=== PATIENT | male | born 1960 | race Caucasian/White ===

== ENCOUNTER 2017-11-19 15:57 | Emergency (ER) | payer OTHER ==
[2017-11-19] MEDS ORDERED: KETOROLAC TROMETHAMINE 60 MG/2 ML VIAL IM ONE (16:44)
--- NOTE | 2017-11-19 16:50 | PDOC ---
History of Present Illness - General Chief Complaint: Back Pain Stated Complaint: BACK PAIN Time Seen by Provider: 11/19/17 16:21 History Source: Patient Exam Limitations: No Limitations - History of Present Illness Initial Comments: 11/19/17 16:45 57y M hx of sciatica presents with back pain. Pt notse his pain has been worsening over the past few weeks, states he was given an rx for flexeril/ skelaxin and hasnt been taking it as he doesnt like how it makes him feel. pt is also occasionally taking motrin (last use >24 hrs ago). he notes the pain is worse in the L lower back and radiates down to the L leg and sometimes to the L flank. pt ntose the pain feels simialr to previous episodes of his back pain. no fever/chills, numbness/weakness/tingling, urinary or bowel incontinence, hematuria, diarrhea/melena. no recent trauma/falls. no cp, sob, palpitations. pt notes pain is wosre when he is seated for long periods of time, improves when he is standing. Past History - Past Medical History Allergies/Adverse Reactions: Allergies Allergy/AdvReac Type Severity Reaction Status Date / Time No Known Allergies Allergy Verified 11/19/17 15:59 Home Medications: Ambulatory Orders Cyclobenzaprine HCl [Flexeril 10 mg] 10 mg PO TID PRN 11/19/17 Meloxicam [Mobic (Nf) -] 18 mg PO DAILY 11/19/17 Zolpidem Tartrate [Ambien] 10 mg PO HS 11/19/17 COPD: No GI Disorders: Yes (PEPTIC ULCER) Other medical history: DENIES - Immunization History Td Vaccination: Yes Immunization Up to Date: No - Suicide/Smoking/Psychosocial Hx Smoking Status: Yes Smoking History: Current every day smoker Have you smoked in the past 12 months: Yes Number of Cigarettes Smoked Daily: 20 Information on smoking cessation initiated: Yes 'Breaking Loose' booklet given: 11/19/17 Hx Alcohol Use: (occasional) Drug/Substance Use Hx: No Substance Use Type: None Hx Substance Use Treatment: No Review of Systems - Review of Systems Able to Perform ROS?: Yes Comments:: 11/19/17 16:49 Constitutional - no reported Fever, Chills, HEENT: no reported vision changes, sore throat Respiratory: no reported cough, sob, hemoptysis Cardiac: no reported chest pain, palpitations, light headedness, leg swelling Abd/GI: no reported abd pain, nausea, vomiting, blood per rectum, melena, diarrhea : no reported dysuria, frequency, discharge Musculskelatal - + back pain, no reportedjoint swelling skin - no reported bruising, erythema, rash neurological: no reported headache, numbness, focal weakness, tingling, ataxia, hematologic: no reported easy bruising, easy bleeding *Physical Exam - Vital Signs Last Vital Signs Temp Pulse Resp BP Pulse Ox 97.5 F L 65 18 117/64 100 11/19/17 15:57 11/19/17 15:57 11/19/17 15:57 11/19/17 15:57 11/19/17 15:57 - Physical Exam Comments: 11/19/17 16:49 GENERAL: The patient is awake, alert, and fully oriented, Nontoxic - in no acute distress. HEAD: Normocephalic, atraumatic. EYES: extraocular movements intact, sclera anicteric, conjunctiva clear. ENT: Normal voice, Moist mucous membranes. NECK: Normal range of motion, supple LUNGS: Breath sounds equal, clear to auscultation bilaterally. No wheezes, no rhonchi, no rales. HEART: Regular rate and rhythm, normal S1 and S2 without murmur, rub or gallop. ABDOMEN: Soft, nontender, normoactive bowel sounds. No guarding, no rebound. . No CVA tenderness BACK: No focal midline tenderness mild L paraspinal lumbar tenderness EXTREMITIES: Normal range of motion, no edema. No clubbing or cyanosis. No cords, erythema, or tenderness. NEUROLOGICAL: No facial assymetry, Normal speech, normal gait, streigth symmetric b/l in upper/lower extrmities,s sensation symmetric b/l PSYCH: Normal mood, normal affect. SKIN: Warm, Dry, normal turgor, Medical Decision Making - Medical Decision Making 11/19/17 16:49 57y M here with back pain, pain c/w sciatica but pt notse it radiates to the front ddx - sciatcia w/ msucle spasm vs kidney stones will obtain UA will treat with toradol IM 11/19/17 17:39 pts UA negative for blood or infection will dc the pt with pmd fu supportive care return precautions were discussed I discussed the physical exam findings, ancillary test results and final diagnoses with the patient. I answered all of the patient's questions. The patient was satisfied with the care received and felt comfortable with the discharge plan and treatment plan. The patient will call their primary care physician within 24 hours to arrange follow-up and will return to the Emergency Department with any new, persistent or worsening symptoms. *DC/Admit/Observation/Transfer Diagnosis at time of Disposition: Back pain with sciatica - Discharge Dispostion Disposition: HOME Condition at time of disposition: Improved Decision to Admit order: No - Referrals Referrals: Jordan Moreno MD [Non Staff, Medical] - - Patient Instructions Printed Discharge Instructions: DI for Back Pain With Sciatica Additional Instructions: Return to the emergency department immediately with ANY new, persistent or worsening symptoms including numbness, tingling, weakness, fevers or any other concerns. Take ibuprofen (400mg)/tylenol(650mg) every 6 hours for 2 days. Take the Flexeril as prescribed if you still have pain/discomfort. Caution in using flexeril as it may make you sleepy. Do not drive or put yourself in any position where you would be in danger. Apply heat to your sore muscles. You MUST call and follow up with your doctor in 4-5 days for further evaluation of your symptoms. Your emergency department visit is not complete without a followup with your doctor for reevaluation.. Results were discussed with you. Please make sure your doctor reviews the results of your emergency evaluation. Print Language: KAZAKH - Post Discharge Activity
[2017-11-19] MEDS ORDERED: KETOROLAC TROMETHAMINE 60 MG/2 ML VIAL ONE (16:51)
[2017-11-19 17:12] LABS: URINE APPEARANCE Clear; URINE BILIRUBIN Negative (NEGATIVE); URINE COLOR Yellow; URINE GLUCOSE (UA) Negative (NEGATIVE); URINE KETONE Negative (NEGATIVE); URINE LEUK ESTERASE Negative (NEGATIVE); URINE NITRITE Negative (NEGATIVE); URINE PROTEIN Negative (NEGATIVE); URINE UROBILINOGEN 0.2 (0.2-1.0)
[2017-11-19 19:03] VITALS: BP 117/64; PULSE 65; TEMP 97.5; BMI 26.6
== END 2017-11-19 18:00 | disposition home or self-care (01) ==
LOC: FER 15:57
PROC: 3E0233Z Introduction of Anti-inflammatory into Muscle, Percutaneous Approach (ICD-10-PCS; principal; 2017-11-19)
DX: M54.30 Sciatica, unspecified side (principal); M54.9 Dorsalgia, unspecified
CPT/HCPCS: 81003; 99284-25

== ENCOUNTER 2017-12-08 18:45 | Emergency (ER) | payer OTHER ==
[2017-12-08 18:57] VITALS: BP 137/94; PULSE 75; TEMP 97.9; BMI 26.7
--- NOTE | 2017-12-08 20:02 | PDOC ---
History of Present Illness - General History Source: Patient Exam Limitations: No Limitations - History of Present Illness Initial Comments: 12/08/17 20:27 The patient is a 57 year old male, with a significant past medical history of sciatica and peptic ulcers, who presents to the emergency department with, lower back pain. The patient describes his pain as radiating from his lower back down his left leg. The patient has been in physical therapy for his symptoms but notes, that he believes his back pain worsens after sessions. He notes similar episodes in the past and was seen in the ED most recently 2017 for similar symptoms. He notes taking a muscle relaxer without relief. He has not been compliant with his Meloxicam because he was unaware he could take them together, prompting his visit to the ER today. He denies any testicular pain or urinary/bowel incontinence. He denies any recent fevers, chills, headache or dizziness. He denies any recent nausea, vomit , diarrhea or constipation. He denies any recent chest pain or shortness of breath. He denies any recent dysuria, frequency, urgency or hematuria. Allergies: NKDA Past surgical history: None reported. Social History: Smoker. Social alcohol usage. <Bernard Song - Last Filed: 12/08/17 21:43> <Jacqui Hernandez - Last Filed: 12/10/17 00:04> - General Chief Complaint: Back Pain Stated Complaint: BACK PAIN Time Seen by Provider: 12/08/17 19:10 Past History <Bernard Song - Last Filed: 12/08/17 21:43> - Past Medical History COPD: No GI Disorders: Yes (PEPTIC ULCER) Other medical history: SCIATIC PAIN - Immunization History Td Vaccination: Yes Immunization Up to Date: No - Suicide/Smoking/Psychosocial Hx Smoking Status: Yes Smoking History: Current every day smoker Have you smoked in the past 12 months: Yes Number of Cigarettes Smoked Daily: 20 Information on smoking cessation initiated: Yes 'Breaking Loose' booklet given: 11/19/17 Hx Alcohol Use: Yes (OCCASIONAL) Drug/Substance Use Hx: No Substance Use Type: None Hx Substance Use Treatment: No <Jacqui Hernandez - Last Filed: 12/10/17 00:04> - Past Medical History Allergies/Adverse Reactions: Allergies Allergy/AdvReac Type Severity Reaction Status Date / Time No Known Allergies Allergy Verified 12/08/17 18:48 Home Medications: Ambulatory Orders Cyclobenzaprine HCl [Flexeril 10 mg] 10 mg PO TID PRN 11/19/17 Meloxicam [Mobic (Nf) -] 18 mg PO DAILY 11/19/17 Zolpidem Tartrate [Ambien] 10 mg PO HS 11/19/17 Oxycodone HCl/Acetaminophen [Percocet 5-325 mg Tablet] 1 tab PO Q6H PRN #8 tablet MDD 2 tabs 12/08/17 Review of Systems - Review of Systems Able to Perform ROS?: Yes Comments:: 12/08/17 20:27 CONSTITUTIONAL: Absent: fever, no chills, no fatigue EYES: Absent: visual changes ENT: Absent: ear pain, no sore throat CARDIOVASCULAR: Absent: chest pain, no palpitations RESPIRATORY: Absent: cough, no SOB GI: Absent: abdominal pain, no nausea, no vomiting, no constipation, no diarrhea GENITOURINARY: Absent: dysuria, no frequency, no hematuria MUSKULOSKELETAL: Present: Back pain. Absent: no arthralgia, no myalgia SKIN: Absent: rash NEURO: Absent: headache All Other Systems: Reviewed and Negative <Bernard Song - Last Filed: 12/08/17 21:43> *Physical Exam - Vital Signs Last Vital Signs Temp Pulse Resp BP Pulse Ox 97.9 F 75 16 137/94 100 12/08/17 18:46 12/08/17 18:46 12/08/17 18:46 12/08/17 18:46 12/08/17 18:46 - Physical Exam Comments: 12/08/17 20:28 GENERAL: The patient is awake, alert, and fully oriented, in no acute distress. HEAD:Normal with no signs of trauma. EYES: Pupils equal, round and reactive to light, extraocular movements intact, sclera anicteric, conjunctiva clear. EXTREMITIES: Normal range of motion, no edema. +BACK: Mild tenderness to central vertebral column L4-L5 and left sacral iliac region. Mild tenderness of the paraspinal lumbar muscles of left side. NEUROLOGICAL: Normal speech, normal gait. PSYCH: Normal mood, normal affect. SKIN: Warm, Dry, normal turgor, no rashes or lesions noted. <Bernard Song - Last Filed: 12/08/17 21:43> - Vital Signs Last Vital Signs Temp Pulse Resp BP Pulse Ox 97.9 F 75 16 137/94 100 12/08/17 18:46 12/08/17 18:46 12/08/17 18:46 12/08/17 18:46 12/08/17 18:46 <Jacqui Hernandez - Last Filed: 12/10/17 00:04> ED Treatment Course - Medications Given in the ED: ED Medications Discontinued Medications Generic Name Dose Route Start Last Admin Trade Name Jessenia PRN Reason Stop Dose Admin Ketorolac Tromethamine 60 mg 12/08/17 20:19 12/08/17 20:20 Toradol Injection - IM 12/08/17 20:20 60 mg ONCE ONE Administration <Bernard Song - Last Filed: 12/08/17 21:43> Progress Note - Progress Note Progress Note: Documentation has been prepared under my direction and personally reviewed by me in its entirety. I attest that this documented accurately reflects all work, treatment, procedures and medical decision making performed by me. <Jacqui Hernandez - Last Filed: 12/10/17 00:04> Medical Decision Making - Medical Decision Making As noted above, this 57-year-old man presents with recurrent left sided lower back pain with some radiation of pain to the anterior proximal thigh. No history of numbness/weakness of the lower extremity or signs of cauda equina syndrome. Exam as noted. Patient has no significant evidence of disc disease but has not had any imaging of his back to rule this out. Patient was asked if he had ever seen an orthopedist. He states he had many years ago but had no interest in following up with orthopedist now. Meloxicam and Skelaxin had been prescribed previously. Patient states these medications are only partially effective and he frequently needs stronger medication at night. He asked about receiving "strong" medication now so that he would have a comfortable night. Since patient had driven himself to the ER and was unwilling to take a cab home , he would receive Toradol 60 mg IM instead of parenteral narcotic. Small prescription for Percocet 5/325 (#8) will be transmitted to patient's pharmacy for supplemental night use. Tomorrow, patient should resume meloxicam and Skelaxin as needed. <Jacqui Hernandez - Last Filed: 12/10/17 00:04> *DC/Admit/Observation/Transfer - Attestations Scribe Attestion: 12/08/17 20:27 Documentation prepared by Bernard Song, acting as biomedical photographer for Jacqui Hernandez MD. <Bernard Song - Last Filed: 12/08/17 21:43> <Jacqui Hernandez - Last Filed: 12/10/17 00:04> Diagnosis at time of Disposition: Lumbosacral ligament sprain Qualifiers: Encounter type: initial encounter Qualified Code(s): S33.5XXA - Sprain of ligaments of lumbar spine, initial encounter - Discharge Dispostion Disposition: HOME Condition at time of disposition: Stable - Prescriptions Prescriptions: Oxycodone HCl/Acetaminophen [Percocet 5-325 mg Tablet] 1 tab PO Q6H PRN #8 tablet MDD 2 tabs PRN Reason: Severe Pain - Patient Instructions Printed Discharge Instructions: Low Back Pain Additional Instructions: Percocet 5/325 one tablet every 6 hours as needed for severe pain (up to 2 tabs per day) Tomorrow, continue meloxicam/muscle relaxant for back pain as needed local warmth to area of pain as needed Follow-up with your general medical doctor within the next 5 days regarding further care of back pain Return to ER if you have severe pain/weakness/numbness of leg
[2017-12-08] MEDS ORDERED: KETOROLAC TROMETHAMINE 60 MG/2 ML VIAL IM ONE (20:19)
[2017-12-08] MEDS ORDERED: KETOROLAC TROMETHAMINE 60 MG/2 ML VIAL ONE (20:20)
== END 2017-12-08 20:34 | disposition home or self-care (01) ==
LOC: FER 18:45
PROC: 3E0233Z Introduction of Anti-inflammatory into Muscle, Percutaneous Approach (ICD-10-PCS; principal; 2017-12-08)
DX: M54.5 Low back pain (principal); S33.5XXA Sprain of ligaments of lumbar spine, initial encounter; K27.9 Peptic ulcer, site unspecified, unspecified as acute or chronic, without hemorrhage or perforation; F17.210 Nicotine dependence, cigarettes, uncomplicated; X58.XXXA Exposure to other specified factors, initial encounter; Y93.89 Activity, other specified; Y92.9 Unspecified place or not applicable
CPT/HCPCS: 99282-25

== ENCOUNTER 2018-05-27 16:40 | Emergency (ER) | payer OTHER ==
[2018-05-27 17:33] VITALS: BP 118/76; PULSE 57; TEMP 97.6; BMI 27.3
--- NOTE | 2018-05-27 18:54 | PDOC ---
Documentation entered by Jocelynn Mejia SCRIBE, acting as scribe for Shubham Strickland MD. Shubham Strickland MD: This documentation has been prepared by the Roberto albert Xhesika, SCRIBE, under my direction and personally reviewed by me in its entirety. I confirm that the documentation accurately reflects all work, treatment, procedures, and medical decision making performed by me. History of Present Illness - General Chief Complaint: Pain Stated Complaint: COUGH, LEFT ARM CHEST AND BACK PAIN Time Seen by Provider: 05/27/18 17:33 History Source: Patient Exam Limitations: No Limitations - History of Present Illness Initial Comments: 05/27/18 18:36 The patient is a 57 year old male, with a significant past medical history of sciatica/ peptic ulcers, and HLD who presents to the emergency department with 3 days of cough and chest pain. The patient describes his chest pain as a dull pressure, radiating down his left arm. Pt also endorses cough x 1 month with white sputum. The patient states he woke up today and felt a burning in his chest that felt like acid reflux. The patient states his chest pain is worsened with exertion. The patient notes he has a family history of heart attack at his age. He is also a current smoker. He denies any recent fevers, chills, headache or dizziness. He denies any recent nausea, vomit, diarrhea or constipation. He denies any recent dysuria, frequency, urgency or hematuria. He denies any recent travels. Allergies: NKDA Past surgical history: None reported. Social History: Smoker (1 pack a day). Social alcohol usage. Past History - Past Medical History Allergies/Adverse Reactions: Allergies Allergy/AdvReac Type Severity Reaction Status Date / Time No Known Allergies Allergy Verified 05/27/18 16:41 Home Medications: Ambulatory Orders Zolpidem Tartrate [Ambien] 10 mg PO HS 11/19/17 Aspirin/Acetaminophen/Caffeine [Excedrin Extra Strength Caplet] 1 each PO PRN PRN 05/27/18 Gabapentin 100 mg PO PRN PRN 05/27/18 COPD: No GI Disorders: Yes (PEPTIC ULCER) Other medical history: BACK PAIN - Immunization History Td Vaccination: Yes Immunization Up to Date: No - Suicide/Smoking/Psychosocial Hx Smoking Status: Yes Smoking History: Current every day smoker Have you smoked in the past 12 months: Yes Number of Cigarettes Smoked Daily: 20 Information on smoking cessation initiated: Yes 'Breaking Loose' booklet given: 11/19/17 Hx Alcohol Use: Yes (OCCASIONAL) Drug/Substance Use Hx: No Substance Use Type: None Hx Substance Use Treatment: No Review of Systems - Review of Systems Comments:: 05/27/18 18:37 GENERAL/CONSTITUTIONAL: No fever or chills. No weakness. HEAD, EYES, EARS, NOSE AND THROAT: No change in vision. No ear pain or discharge. No sore throat. CARDIOVASCULAR: (+) chest pain. No shortness of breath, no loss of consciousness RESPIRATORY:(+) cough. No wheezing, or hemoptysis. GASTROINTESTINAL: No nausea, vomiting, diarrhea or constipation. GENITOURINARY: No dysuria, frequency, or change in urination. MUSCULOSKELETAL: No neck or back pain. SKIN: No rash NEUROLOGIC: No vertigo, no change in strength/sensation. ENDOCRINE: No increased thirst. No abnormal weight change. HEMATOLOGIC/LYMPHATIC: No anemia, easy bleeding, or history of blood clots. ALLERGIC/IMMUNOLOGIC: No hives or skin allergy. *Physical Exam - Vital Signs Last Vital Signs Temp Pulse Resp BP Pulse Ox 97.6 F 57 L 20 118/76 99 05/27/18 16:41 05/27/18 16:41 05/27/18 16:41 05/27/18 16:41 05/27/18 16:41 - Physical Exam Comments: 05/27/18 18:37 "GENERAL: Awake, alert, and fully oriented, in no acute distress. HEAD: No signs of trauma EYES: PERRLA, EOMI, sclera anicteric, conjunctiva clear ENT: Auricles normal inspection, hearing grossly normal, nares patent, oropharynx clear without exudates. Moist mucosa NECK: Nontender, no stepoffs, Normal ROM, supple, no lymphadenopathy, JVD, or masses LUNGS: Breath sounds equal, clear to auscultation bilaterally. No wheezes, and no crackles HEART: Regular rate and rhythm, normal S1 and S2, no murmurs, rubs or gallops ABDOMEN: Soft, nontender, normoactive bowel sounds. No guarding, no rebound. No masses EXTREMITIES: Normal range of motion, no edema. No clubbing or cyanosis. No cords, erythema, or tenderness NEUROLOGICAL: Cranial nerves II through XII intact. 5/5 strength and sensation in all extremities, Normal speech, normal gait, normal cerebellar function SKIN: Warm, Dry, normal turgor, no rashes or lesions noted. Heart Score/ECG Review - History History: Slightly suspicious - Electrocardiogram EKG: Normal - Age Age: 45-65 - Risk Factors Risk Factors Heart Score: Yes Hx Hypercholesterolemia, Yes Smoking History, Yes Positive family hx of cardiac disease Based on the list above the patient has:: >/=3 risk factors or Hx atherosclerotic disease - Troponin Troponin: </= normal limit - Score Heart Score - Total: 3 - ECG Impressions Comment:: 05/27/18 18:40 NSR, no AUBRIE/STDs, no TWIs, axis wnl, intervals wnl, rate 50 ED Treatment Course - LABORATORY CBC & Chemistry Diagram: 05/27/18 19:05 05/27/18 19:05 - ADDITIONAL ORDERS Additional order review: Laboratory Results 05/27/18 05/27/18 05/27/18 20:24 19:05 19:05 PT with INR 12.6 INR 1.13 PTT (Actin FS) 27.8 Sodium 143 Potassium 5.1 Chloride 106 Carbon Dioxide 26 Anion Gap 11 BUN 11 Creatinine 0.7 Creat Clearance w eGFR 117.08 Random Glucose 87 Calcium 9.2 Total Bilirubin 0.8 AST 24 ALT 18 Alkaline Phosphatase 58 Creatine Kinase 137 Troponin I < 0.03 B-Natriuretic Peptide Total Protein 7.2 Albumin 4.4 05/27/18 05/27/18 19:05 18:55 PT with INR INR PTT (Actin FS) Sodium Potassium Chloride Carbon Dioxide Anion Gap BUN Creatinine Creat Clearance w eGFR Random Glucose Calcium Total Bilirubin AST ALT Alkaline Phosphatase Creatine Kinase Troponin I < 0.03 B-Natriuretic Peptide 77.6 Total Protein Albumin 05/27/18 19:05 RBC 4.77 MCV 95.6 MCHC 34.0 RDW 12.6 MPV 12.4 H Neutrophils % No Result Required. Lymphocytes % No Result Required. - RADIOLOGY Radiology Studies Ordered: Category Date Time Status CHEST PA & LAT [RAD] Stat Radiology 05/27/18 17:59 Completed Medical Decision Making - Medical Decision Making 05/27/18 18:38 57 M presenting to ED with chest pressure x 3 days. Will need to r/o ACS given comorbidities and family history of WI. PE unlikely as pt with no DVT risk factors. Equal pulses bilaterally, making dissection unlikely. - Labs, trop x2 - CXR Pt signed out to oncoming attending at 7pm, pending labs, XR, and re-evaluation *DC/Admit/Observation/Transfer Diagnosis at time of Disposition: Atypical chest pain - Discharge Dispostion Disposition: HOME Condition at time of disposition: Stable - Referrals - Patient Instructions Printed Discharge Instructions: DI for Atypical Chest Pain Additional Instructions: return to ER if you have persistent pain or have shortness of breath/vomiting avoid smoking as much as possible followup with your doctor within 3-4 days - Post Discharge Activity - Attestations Physician Attestion: 05/27/18 22:02 I, Dr. Shubham Strickland MD, attest that this document has been prepared under my direction and personally reviewed by me in its entirety. I further attest, that it accurately reflects all work, treatment, procedures and medical decision -making performed by me.
[2018-05-27 19:25] LABS: HEMATOCRIT 45.6 % (35.4-49); HEMOGLOBIN 15.5 GM/dl (11.7-16.9); MCH 32.5 pg (25.7-33.7); MEAN CELL VOLUME 95.6 fl (80-96); MEAN PLT VOLUME 12.4 fl (7.5-11.1); PLATELET COUNT 97 K/MM3 (134-434); RBC 4.77 M/mm3 (4.00-5.60); RDW 12.6 % (11.9-15.9); WHITE BLOOD COUNT 6.5 K/mm3 (4.0-10.8)
[2018-05-27 19:36] LABS: ALBUMIN 4.4 g/dl (3.4-5.0); ALK PHOS 58 U/L (45-117); ANION GAP 11 MMOL/L (8-16); BILIRUBIN,TOTAL 0.8 mg/dl (0.2-1); BLOOD UREA NITROGEN 11 mg/dl (7-18); CALCIUM 9.2 mg/dl (8.5-10); CHLORIDE 106 mmol/L (98-107); CO2 26 mmol/L (21-32); CREATININE 0.7 mg/dl (0.55-1.3); GLUCOSE,RANDOM 87 mg/dl (74-106); POTASSIUM 5.1 mmol/L (3.5-5.1); SGOT/AST 24 U/L (15-37); SGPT/ALT 18 U/L (13-61); SODIUM 143 mmol/L (136-145); TOT PROT 7.2 g/dl (6.4-8.2)
[2018-05-27 19:41] LABS: ACTIVATED PTT 27.8 SECONDS (25.2-36.5)
[2018-05-27 19:51] LABS: INR 1.13 (0.82-1.09); PROTHROMBIN TIME (PATIENT) 12.6 SEC (10.2-13.0)
--- NOTE | 2018-05-27 20:24 | PDOC ---
*Physical Exam - Vital Signs Last Vital Signs Temp Pulse Resp BP Pulse Ox 97.6 F 57 L 20 118/76 99 05/27/18 16:41 05/27/18 16:41 05/27/18 16:41 05/27/18 16:41 05/27/18 16:41 ED Treatment Course - LABORATORY CBC & Chemistry Diagram: 05/27/18 19:05 05/27/18 19:05 - ADDITIONAL ORDERS Additional order review: Laboratory Results 05/27/18 05/27/18 05/27/18 19:05 19:05 18:55 PT with INR 12.6 INR 1.13 PTT (Actin FS) 27.8 Sodium 143 Potassium 5.1 Chloride 106 Carbon Dioxide 26 Anion Gap 11 BUN 11 Creatinine 0.7 Creat Clearance w eGFR 117.08 Random Glucose 87 Calcium 9.2 Total Bilirubin 0.8 AST 24 ALT 18 Alkaline Phosphatase 58 Creatine Kinase 137 Troponin I < 0.03 Total Protein 7.2 Albumin 4.4 05/27/18 19:05 RBC 4.77 MCV 95.6 MCHC 34.0 RDW 12.6 MPV 12.4 H Neutrophils % No Result Required. Lymphocytes % No Result Required. Progress Note - Progress Note Progress Note: Care of this patient received from Patient presented with several day history of chest pain. EKG as noted is normal. Patient has risk factors for coronary artery disease (hyperlipidemia/family history). Laboratory evaluation, including troponin is normal. Because of the risk factors for coronary artery disease, second troponin was drawn. This also was normal. BNP had been evaluated and this was not found to be elevated. Patient will be discharged with instructions to avoid smoking, to return to the emergency room if he has severe, persistent pain, shortness of breath, palpitations or lightheadedness. Otherwise, he should follow-up with his doctor within the next 3-4 days *DC/Admit/Observation/Transfer Diagnosis at time of Disposition: Atypical chest pain - Discharge Dispostion Disposition: HOME Condition at time of disposition: Stable - Referrals - Patient Instructions Printed Discharge Instructions: DI for Atypical Chest Pain Additional Instructions: return to ER if you have persistent pain or have shortness of breath/vomiting avoid smoking as much as possible followup with your doctor within 3-4 days - Post Discharge Activity
[2018-05-27 21:46] LABS: PLATELET ESTIMATE ADEQUATE
--- NOTE | 2018-05-28 12:38 | EKG ---
Test Reason : Blood Pressure : / mmHG Vent. Rate : 050 BPM Atrial Rate : 050 BPM P-R Int : 172 ms QRS Dur : 102 ms QT Int : 466 ms P-R-T Axes : 061 036 040 degrees QTc Int : 424 ms SINUS BRADYCARDIA OTHERWISE NORMAL ECG Confirmed by MD MELONIE, HARI ([id number]) on 05/28/2018 12:38:27 PM Referred By: Confirmed By:HARI WILHELM MD
== END 2018-05-27 21:59 | disposition home or self-care (01) ==
LOC: FER 16:40
DX: R07.89 Other chest pain (principal); E78.00 Pure hypercholesterolemia, unspecified; F17.210 Nicotine dependence, cigarettes, uncomplicated; K27.9 Peptic ulcer, site unspecified, unspecified as acute or chronic, without hemorrhage or perforation
CPT/HCPCS: 36415; 71046-TC-FY; 80053; 82550; 83880; 84484; 85025; 85610; 85730; 87804; 93005; 99283-25

== ENCOUNTER 2021-04-21 17:50 | Emergency (ER) | payer OTHER ==
[2021-04-21 18:07] VITALS: BP 102/72; PULSE 56; TEMP 98.6; BMI 28.4
[2021-04-21 19:31] LABS: ALBUMIN 4.2 g/dl (3.4-5.0); BILIRUBIN,TOTAL 0.9 mg/dl (0.2-1); CALCIUM 9.2 mg/dl (8.5-10); CREATININE 0.8 mg/dl (0.55-1.3); TOT PROT 6.9 g/dl (6.4-8.2)
[2021-04-21] MEDS ORDERED: FAMOTIDINE 20 MG/50 ML IVPB 20 MG in PREMIX 50 IVPB ONE (19:48)
[2021-04-21] MEDS ORDERED: MAG HYDROX/AL HYDROX/SIMETH -MYLANTA- ORAL SUSPENSION PO ONE (19:48)
[2021-04-21] MEDS ORDERED: FAMOTIDINE 20 MG/50 ML IVPB 20 MG/50 ML MG IVPB ONE (19:59)
[2021-04-21] MEDS ORDERED: MAG HYDROX/AL HYDROX/SIMETH 30 ML UNIT-DOSE CUP ONE (19:59)
[2021-04-21] MEDS ORDERED: FAMOTIDINE 20 MG TABLET PO ONE (20:06)
[2021-04-21] MEDS ORDERED: FAMOTIDINE 20 MG TABLET ONE (20:07)
[2021-04-21 21:16] LABS: BASO % 0.4 % (0-2.0); EOS % 2.1 % (0-4.5); HEMATOCRIT 44.7 % (35.4-49); HEMOGLOBIN 15.4 GM/dL (11.7-16.9); LYMPH % 23.6 % (8-40); MCH 32.1 pg (25.7-33.7); MCHC 34.4 g/dl (32.0-35.9); MEAN CELL VOLUME 93.3 fl (80-96); MEAN PLT VOLUME 10.8 fl (7.5-11.1); MONO % 5.6 % (3.8-10.2); NEUT % 68.3 % (42.8-82.8); PLATELET COUNT 94 10^3/uL (134-434); RBC 4.79 M/mm3 (4.00-5.60); RDW 12.7 % (11.9-15.9); WHITE BLOOD COUNT 7.7 K/mm3 (4.0-10.0)
[2021-04-23 12:07] LABS: SARS-CoV-2 NAA Not Detected (Not Detected)
== END 2021-04-21 21:53 | disposition home or self-care (01) ==
LOC: FER 17:50
DX: J40 Bronchitis, not specified as acute or chronic (principal); K21.9 Gastro-esophageal reflux disease without esophagitis
CPT/HCPCS: 36415; 71046-TC-FY; 76705-TC; 80053; 83690; 84484; 85025; 93005; 99285-25; C9803; U0003; U0005

== ENCOUNTER 2022-06-05 13:45 | Emergency (ER) | payer OTHER ==
[2022-06-05 13:58] VITALS: BP 113/75; PULSE 82; RESP 16; TEMP 98.1; BMI 27.6
== END 2022-06-05 15:08 | disposition home or self-care (01) ==
LOC: FER 13:45
DX: R09.81 Nasal congestion (principal); Z20.822 Contact with and (suspected) exposure to COVID-19
CPT/HCPCS: 0241U-QW; 99283-25

== ENCOUNTER 2022-09-11 19:35 | Emergency (ER) | payer OTHER ==
[2022-09-11 20:35] VITALS: BP 106/61; PULSE 56; RESP 16; TEMP 98.4; BMI 27.4
== END 2022-09-11 21:44 | disposition home or self-care (01) ==
LOC: FER 19:35
DX: R07.89 Other chest pain (principal); B34.9 Viral infection, unspecified; M79.10 Myalgia, unspecified site; R19.7 Diarrhea, unspecified; Z20.822 Contact with and (suspected) exposure to COVID-19
CPT/HCPCS: 0241U-QW; 71046-TC-FY; 93005; 99285-25

== ENCOUNTER 2023-12-27 17:32 | Emergency (ER) | payer OTHER ==
[2023-12-27 17:57] VITALS: BP 114/72; PULSE 72; RESP 18; TEMP 99; BMI 27.4
[2023-12-27 18:12] LABS: HEMATOCRIT 46.6 % (35.4-49); HEMOGLOBIN 15.9 G/dL (11.7-16.9); MCH 32.6 pg (25.7-33.7); MCHC 34.2 g/dl (32.0-35.9); MEAN CELL VOLUME 95.4 fl (80-96); MEAN PLT VOLUME 11.1 fl (7.5-11.1); PLATELET COUNT 89.8 10^3/uL (134-434); RBC 4.88 10^6/uL (4.00-5.60); RDW 12.9 % (11.9-15.9); WHITE BLOOD COUNT 7.5 10^3/uL (4.0-10.8)
[2023-12-27 18:28] LABS: ALBUMIN 4.6 g/dl (3.4-5.0); BILIRUBIN,TOTAL 0.4 mg/dl (0.2-1); CALCIUM 9.3 mg/dl (8.5-10.1); CREATININE 0.8 mg/dl (0.6-1.3); TOT PROT 6.8 g/dl (6.4-8.2)
== END 2023-12-27 19:10 | disposition home or self-care (01) ==
LOC: FER 17:32
DX: R09.89 Other specified symptoms and signs involving the circulatory and respiratory systems (principal); R06.02 Shortness of breath; R53.83 Other fatigue; R05.9 Cough, unspecified; R50.9 Fever, unspecified; R09.81 Nasal congestion; R53.1 Weakness; Z20.822 Contact with and (suspected) exposure to COVID-19
CPT/HCPCS: 0241U-QW; 36415; 71046-TC-FY; 80053; 85027; 93005; 99285-25

== ENCOUNTER 2024-10-04 15:36 | Emergency (ER) | payer OTHER ==
[2024-10-04 15:52] VITALS: BP 91/52; PULSE 55; RESP 18; TEMP 98.4; BMI 25.8
[2024-10-04 16:14] LABS: ABSOLUTE IMMATURE GRANULOCYTES 0.01 x10^3/uL (0.0-0.031); BASOPHILS # 0.03 x10^3/uL (0.01-0.08); EOSINOPHIL % 1.9 % (0.8-7.0); EOSINOPHILS # 0.14 x10^3/uL (0.04-0.54); MCHC 34.0 g/dl (32.3-36.5); MEAN CELL VOLUME 95.2 fl (79.0-92.2); MEAN PLT VOLUME 13.0 fl (9.4-12.4); MONOCYTE # 0.39 x10^3/uL (0.30-0.82); MONOCYTE % 5.4 % (5.3-12.2); RDW 12.1 % (12.2-16.4)
[2024-10-04 16:36] LABS: ALK PHOS 69.0 U/L (45-117); CO2 26.0 mmol/L (21-32); CREATININE 0.7 mg/dl (0.6-1.3); GLUCOSE,RANDOM 103.0 mg/dl (74-106); SGOT/AST 16.0 U/L (15-37); SGPT/ALT 17.0 U/L (7-52); TOT PROT 6.9 g/dl (6.4-8.2)
[2024-10-04] MEDS ORDERED: FAMOTIDINE 20 MG TABLET ONE (17:20)
[2024-10-04] MEDS ORDERED: MAG HYDROX/AL HYDROX/SIMETH 30 ML UNIT-DOSE CUP ONE (17:20)
[2024-10-04] MEDS: MAG HYDROX/AL HYDROX/SIMETH -MYLANTA- ORAL SUSPENSION PO ONE (17:22)
[2024-10-04] MEDS: FAMOTIDINE 20 MG TABLET PO ONE (17:22)
[2024-10-04 18:50] LABS: HCV DIAGNOSTIC IN-HOUSE W/RFLX NON-REACTIVE (NONREACTIVE); HIV INTERPRETATION NEGATIVE (NEGATIVE)
== END 2024-10-04 17:57 | disposition home or self-care (01) ==
LOC: FER 15:36
DX: R07.2 Precordial pain (principal); R10.13 Epigastric pain
CPT/HCPCS: 36415; 71046-TC-FY; 80053; 84484; 85025; 86803; 87389; 87637-QW; 93005; 99285-25